=== PATIENT | male | born 1945 | race Caucasian/White ===

== ENCOUNTER → 2018-06-14 11:59 | Outpatient (CLI) | payer OTHER, SELFPAY ==
--- NOTE | 2018-06-14 | DI.US.S_ITS ---
PROCEDURE: US CAROTID DOPPLER BI INDICATIONS: OCCLUSION OF LEFT CAROTID ARTERY TECHNIQUE: Color and pulse Doppler interrogation was performed of both carotid systems, with image documentation and velocity measurements. COMPARISON: [facility], , CAROTID ARTERY DOPPLER BILAT, 01/02/2013, 10:25. [facility], [place], CAROTID ARTERY DOPPLER BILAT, 01/18/2014, 10:42. [facility], [place], CAROTID ARTERY DOPPLER BILAT, 09/02/2016, 7:17. [facility], [place], CAROTID ARTERY DOPPLER BILAT, 09/05/2017, 14:36. FINDINGS: Stenosis calculations are based on SRU (Society of Radiologists in Ultrasound) criteria. Right side: Brachial blood pressure: 138/76 mm Hg. Common carotid artery peak systolic velocity: 84 cm/sec (prior 106 cm/s). Internal carotid artery peak systolic velocity: 152 cm/sec (prior 189 cm/s). Internal carotid artery end diastolic velocity: 63 cm/sec (prior 59 cm/s). External carotid artery peak systolic velocity: 210 cm/sec (prior 214 cm/s). ICA/CCA peak systolic ratio: 1.8 (prior 1.87). Da Silva scale imaging description: Moderate atherosclerotic changes are seen. Percent internal carotid artery stenosis: 50-69% by velocity criteria Vertebral artery: Flow direction is antegrade. Left side: Brachial blood pressure: 126/77 mm Hg. Common carotid artery peak systolic velocity: 77 cm/sec (prior 68 cm/s). Internal carotid artery peak systolic velocity: Occluded, as before. Internal carotid artery end diastolic velocity: Occluded, as before. External carotid artery peak systolic velocity: 133 cm/sec (prior 59 cm/s). ICA/CCA peak systolic ratio: Occluded, N./A. Da Silva scale imaging description: There is an occluded left internal carotid artery. Percent internal carotid artery stenosis: 100% Vertebral artery: Flow direction is antegrade. IMPRESSION: Occluded left internal carotid artery, as before. By velocity criteria, there is a moderate stenosis (between 50 and 69% stenosis) within the right proximal internal carotid artery. The true degree of stenosis is felt most likely to be at the lower end of this range. There is also a greater than 50% stenosis involving the right external carotid artery, by velocity criteria. Dictated by: Landry Camarillo M.D. on 06/14/2018 at 12:07 Approved by: Landry Camarillo M.D. on 06/14/2018 at 12:09
== END ==
PROVIDERS: PCP Family Medicine; Visit Provider Internal Medicine Cardiovascular Disease
DX: I65.23 Occlusion and stenosis of bilateral carotid arteries (principal)
CPT/HCPCS: 93880

== ENCOUNTER 2019-04-17 06:42 | Day surgery (SDC) | payer OTHER, SELFPAY ==
[2019-04-17 07:15] VITALS: BP 157/81; PULSE 51; RESP 20; TEMP 36.2; O2SAT 98; BMI 31.3
[2019-04-17] MEDS: PROPARACAINE 0.5% OPHTH SOL 2 DROPS EYE-OP (07:20)
[2019-04-17] MEDS: CATARACT EYE COMPOUND (10 DROPS/SYRINGE) 3 DROPS EYE-OP (07:25)
--- NOTE | 2019-04-17 07:49 | PM.PREOP ---
Pre-operative Note Interval Note History & Physical reviewed/Exam performed by Physician: No Changes to H&P: No
--- NOTE | 2019-04-17 07:49 | PM.OP.1 ---
Operative Date/Time/Diagnoses Pre-op diagnosis: Nuclear cataract right eye Procedure & Clinicians Procedure: Cataract Surgery Same procedure as scheduled: Yes Surgeon: Mario Chiu Anesthesia Type: MAC +/- and Sedation Operative Notes Procedure in detail: Patient brought to the operating suite. Tetracaine drops placed in the right eye. Patient was prepped and draped in sterile manner. Wire lid speculum was placed in the eye. Betadine drops were placed on the eye. This was irrigated. Lidocaine jelly was placed on the eye. A paracentesis port was created with a side-port blade. 0.1 mL 1% preservative free lidocaine was injected into the anterior chamber. The anterior chamber was deepened with viscoelastic. 2.6 mm keratome was used to create a temporal clear corneal incision. The pupil was floppy and miotic. A 6.25 malyugin ring was used to enlarge the pupil. Cystotome and Utrata forceps were used to create continuous tear capsulorrhexis. Balanced salt solution was used to hydro dissect the nucleus. The phacoemulsification handpiece was inserted and the nucleus was removed using the stop and chop technique. The irrigation aspiration handpiece was inserted and the remaining cortex was removed. Anterior chamber was deepened with viscoelastic. An Brunson ZCB00 intraocular lens with a power of 23.5 was injected into the capsular bag. The malugin ring was removed. Irrigation aspiration handpiece was inserted and the remaining viscoelastic was removed. Incision was hydrated with balanced salt solution and found to be leak free with pressure with Weck-Brissa sponges. 0.1 mL Vigamox injected anterior chamber. 0.3 mL Kenalog 10 mg was injected subconjunctivally. Lid speculum was removed. The patient left the operating room in excellent condition. Complications: none Post-operative Condition: stable Disposition: same day surgery
--- NOTE | 2019-04-17 08:04 | SUR.OPER ---
Supine on eye stretcher, head on extension cradle secured with tape. Arms tucked at sides with blanket. Pillow under knees.
[2019-04-17] MEDS: TRIAMCINOLONE 50 MG/5 ML VIAL INJ (08:06)
[2019-04-17] MEDS: CHONDROIDTIN/SOD HYALURONATE 1.05 ML SYRINGE INTRAOCULA (08:06)
[2019-04-17] MEDS: PHENYLEPHRINE/LIDOCAINE VIAL (OR) 0.2 ML EYE-OP (08:06)
[2019-04-17] MEDS: LIDOCAINE JELLY 2% 5 ML 1 APPLIC TOP (08:07)
[2019-04-17] MEDS: TETRACAINE 0.5% OPHTH DROPS 4 ML 2 DROPS EYE-OP (08:07)
[2019-04-17] MEDS: BALANCED SALT IRRIG SOLN NO.2 500 ML, EPINEPHrine 1 MG IRR (08:07)
[2019-04-17] MEDS: MOXIFLOXACIN INJ 5 MG/ML VIAL EYE-OP (08:08)
[2019-04-17 08:19] VITALS: BP 131/74; PULSE 52; RESP 15; TEMP 36.3; O2SAT 97
== END 2019-04-17 08:27 | disposition home or self-care (01) ==
LOC: OR 06:49
PROVIDERS: PCP Family Medicine; Visit Provider Ophthalmology
PROC: (CPT 66984; principal; 2019-04-17 08:15)
DX: H25.11 Age-related nuclear cataract, right eye (principal); R00.9 Unspecified abnormalities of heart beat
CPT/HCPCS: 66984; J0171; J2250; J3301

== ENCOUNTER 2019-05-01 06:40 | Day surgery (SDC) | payer OTHER, SELFPAY ==
[2019-05-01] MEDS: PROPARACAINE 0.5% OPHTH SOL 2 DROPS EYE-OP (07:24)
[2019-05-01] MEDS: CATARACT EYE COMPOUND (10 DROPS/SYRINGE) 3 DROPS EYE-OP (07:29)
[2019-05-01 07:38] VITALS: BP 137/69; PULSE 50; RESP 16; TEMP 36.7; O2SAT 98; BMI 31.3
--- NOTE | 2019-05-01 08:04 | PM.PREOP ---
Pre-operative Note Interval Note History & Physical reviewed/Exam performed by Physician: No Changes to H&P: No
--- NOTE | 2019-05-01 08:04 | PM.OP.1 ---
Operative Date/Time/Diagnoses Pre-op diagnosis: Nuclear Cataract Left eye Post-op diagnosis: same Procedure & Clinicians Surgeon: Mario Chiu Anesthesia Type: MAC +/- and Sedation Operative Notes Procedure in detail: Patient brought to the operating suite. Tetracaine drops placed in the left eye. Patient was prepped and draped in sterile manner. Wire lid speculum was placed in the eye. Betadine drops were placed on the eye. This was irrigated. Lidocaine jelly was placed on the eye. A paracentesis port was created with a side-port blade. 0.1 mL 1% preservative free lidocaine was injected into the anterior chamber. The anterior chamber was deepened with viscoelastic. 2.6 mm keratome was used to create a temporal clear corneal incision. The pupil was floppy and miotic. A 6.2 malyugin ring was used to enlarge the pupil. Cystotome and Utrata forceps were used to create continuous tear capsulorrhexis. Balanced salt solution was used to hydro dissect the nucleus. The phacoemulsification handpiece was inserted and the nucleus was removed using the stop and chop technique. The irrigation aspiration handpiece was inserted and the remaining cortex was removed. Anterior chamber was deepened with viscoelastic. An Brunson ZCB00 intraocular lens with a power of 24.0 was injected into the capsular bag. The malyugin ring was removed. Irrigation aspiration handpiece was inserted and the remaining viscoelastic was removed. Incision was hydrated with balanced salt solution and found to be leak free with pressure with Weck-Brissa sponges. 0.1 mL Vigamox injected anterior chamber. 0.3 mL Kenalog 10 mg was injected subconjunctivally. Lid speculum was removed. The patient left the operating room in excellent condition. Complications: none Post-operative Condition: stable Disposition: same day surgery
[2019-05-01] MEDS: BALANCED SALT IRRIG SOLN NO.2 500 ML, EPINEPHrine 1 MG IRR (08:22)
[2019-05-01] MEDS: TETRACAINE 0.5% OPHTH DROPS 4 ML 2 DROPS EYE-OP (08:22)
[2019-05-01] MEDS: CHONDROIDTIN/SOD HYALURONATE 1.05 ML SYRINGE INTRAOCULA (08:22)
[2019-05-01] MEDS: PHENYLEPHRINE/LIDOCAINE VIAL (OR) 0.2 ML EYE-OP (08:23)
[2019-05-01] MEDS: MOXIFLOXACIN INJ 5 MG/ML VIAL EYE-OP (08:23)
[2019-05-01] MEDS: LIDOCAINE JELLY 2% 5 ML 1 APPLIC TOP (08:23)
[2019-05-01] MEDS: TRIAMCINOLONE 50 MG/5 ML VIAL INJ (08:23)
[2019-05-01 08:37] VITALS: BP 145/78; PULSE 51; RESP 8; TEMP 36.8; O2SAT 97
[2019-05-01 08:38] VITALS: BP 145/78; PULSE 57; RESP 8; TEMP 36.8; O2SAT 97
[2019-05-01 08:50] VITALS: BP 135/71; PULSE 51; RESP 12; O2SAT 95
== END 2019-05-01 08:56 | disposition home or self-care (01) ==
LOC: OR 06:43
PROVIDERS: PCP Family Medicine; Visit Provider Ophthalmology
PROC: (CPT 66984; principal; 2019-05-01 08:15)
DX: H25.12 Age-related nuclear cataract, left eye (principal); R00.9 Unspecified abnormalities of heart beat
CPT/HCPCS: 66984; J0171; J2250; J3010; J3301

== ENCOUNTER → 2019-05-07 08:32 | Outpatient (CLI) | payer OTHER, SELFPAY ==
--- NOTE | 2019-05-07 08:33 | DI.US.S_ITS ---
PROCEDURE: US CAROTID DOPPLER BI INDICATIONS: LEFT CAROTID OCCLUSION TECHNIQUE: Color and pulse Doppler interrogation was performed of both carotid systems, with image documentation and velocity measurements. COMPARISON: [facility], , CAROTID ARTERY DOPPLER BILAT, 09/05/2017, 14:36. [facility], [place], CAROTID ARTERY DOPPLER BILAT, 09/02/2016, 7:17. [facility], , US CAROTID DOPPLER BI, 06/14/2018, 12:08. FINDINGS: Stenosis calculations are based on SRU (Society of Radiologists in Ultrasound) criteria. Right side: Brachial blood pressure: 130/74 mm Hg. Common carotid artery peak systolic velocity: 78 cm/sec. Internal carotid artery peak systolic velocity: 190 cm/sec. Internal carotid artery end diastolic velocity: 59 cm/sec. External carotid artery peak systolic velocity: 185 cm/sec. ICA/CCA peak systolic ratio: 2.5. Da Silva scale imaging description: Heavy scattered plaque. Percent internal carotid artery stenosis: 50-69% stenosis. Vertebral artery: Flow direction is antegrade. Left side: Brachial blood pressure: 143/83 mm Hg. Common carotid artery peak systolic velocity: 55 cm/sec. Internal carotid artery peak systolic velocity: Occluded Internal carotid artery end diastolic velocity: N./A. External carotid artery peak systolic velocity: 108 cm/sec. ICA/CCA peak systolic ratio: N./A.. Da Silva scale imaging description: Heavy scattered plaque. Percent internal carotid artery stenosis: Chronic occlusion of the internal carotid artery. Vertebral artery: Not visualized. IMPRESSION: 1. Slight progression of 50-69% stenosis of the right internal carotid artery. 2. Chronic occlusion of the left internal carotid artery redemonstrated. Dictated by: Silver Campos [facility] Interpreted: Charles Xie MD on 05/07/2019 at 10:19 Approved by: Charles Xie M.D. on 05/07/2019 at 12:15
== END ==
PROVIDERS: PCP Family Medicine; Visit Provider Family Medicine
DX: I65.23 Occlusion and stenosis of bilateral carotid arteries (principal)
CPT/HCPCS: 93880

== ENCOUNTER → 2019-07-30 07:58 | Outpatient (CLI) | payer OTHER, SELFPAY ==
[2019-07-30 08:37] LABS: Add Manual Diff / Slide Review NO; Basophils Absolute Auto 0 /uL (0-100); Basophils Percent Auto 0.8 % (0-2); Eosinophils Absolute Auto 100 /uL (0-450); Eosinophils Percent Auto 1.6 % (2-4); Hematocrit 43.6 % (41-53); Hemoglobin 14.8 g/dL (13.5-17.5); Lymphocytes Absolute Auto 1500 /uL (1100-4500); Mean Corpuscular HGB Conc 33.9 % (30-36); Mean Corpuscular Hemoglobin 30.5 PG (26-34); Mean Corpuscular Volume 89.8 fL (80-100); Monocytes Absolute Auto 400 /uL (0-900); Monocytes Percent Auto 7.2 % (3-14); Neutrophils Absolute Auto 3600 /uL (1500-7000); Neutrophils Percent Auto 64.4 % (50-75); Platelet Count 144 X10^3/uL (150-400); Red Blood Cell Count 4.85 X10^6/uL (4.5-5.9); Red Cell Distribution Width 13.1 % (11.6-14.8); White Blood Cell Count 5.7 X10^3/uL (4.5-11.0)
[2019-07-30 08:42] LABS: Alanine Aminotransferase 22 IU/L (<50); Albumin 4.4 g/dL (3.5-5.0); Albumin Globulin Ratio 1.4 (1.0-2.8); Alkaline Phosphatase 66 U/L (38-126); Aspartate Aminotransferase 26 IU/L (17-59); Bilirubin Total 0.5 mg/dL (0.2-1.3); Blood Urea Nitrogen 16 mg/dL (9-20); Calcium 9.5 mg/dL (8.4-10.2); Carbon Dioxide 28 mmol/L (22-32); Chloride 102 mmol/L (98-107); Cholesterol 129 mg/dL (140-199); Estimated Glomerular Filt Rate > 60.0 mL/min (>60); Globulin 3.1 g/dL (1.7-4.1); Glucose 122 mg/dL (80-110); HDL Cholesterol 56 mg/dL (40-60); HEMOLYSIS < 15 (0-50); LDL Cholesterol Calculated 48 mg/dL (<100); Potassium 4.8 mmol/L (3.4-5.1); Sodium 139 mmol/L (137-145); Total Protein 7.5 g/dL (6.3-8.2); Triglycerides 123 mg/dL (35-150)
== END ==
PROVIDERS: PCP Family Medicine; Referring Provider Hospitalist; Visit Provider Hospitalist
DX: I25.10 Atherosclerotic heart disease of native coronary artery without angina pectoris (principal); E78.2 Mixed hyperlipidemia
CPT/HCPCS: 36415; 80053; 80061; 85025; G0103

== ENCOUNTER → 2020-05-07 07:06 | Outpatient (CLI) | payer OTHER, SELFPAY ==
[2020-05-07 08:38] LABS: BUN Creatinine Ratio 18.8 (6-22); Blood Urea Nitrogen 18 mg/dL (9-20); Calcium 9.5 mg/dL (8.4-10.2); Carbon Dioxide 34 mmol/L (22-32); Chloride 101 mmol/L (98-107); Cholesterol 122 mg/dL (140-199); Estimated Glomerular Filt Rate > 60.0 mL/min (>60); Glucose 116 mg/dL (80-110); HDL Cholesterol 59 mg/dL (40-60); HEMOLYSIS < 15 (0-50); LDL Cholesterol Calculated 40 mg/dL (<100); Potassium 4.8 mmol/L (3.4-5.1); Sodium 136 mmol/L (137-145); Triglycerides 115 mg/dL (35-150)
== END ==
PROVIDERS: PCP Family Medicine; Referring Provider Family Medicine; Visit Provider Family Medicine
DX: I25.10 Atherosclerotic heart disease of native coronary artery without angina pectoris (principal); I73.9 Peripheral vascular disease, unspecified
CPT/HCPCS: 36415; 80048; 80061

== ENCOUNTER → 2020-05-26 11:31 | Outpatient (CLI) | payer OTHER, SELFPAY ==
--- NOTE | 2020-05-26 11:32 | DI.US.S_ITS ---
PROCEDURE: US CAROTID DOPPLER BI INDICATIONS: Carotid artery disease TECHNIQUE: Color and pulse Doppler interrogation was performed of both carotid systems, with image documentation and velocity measurements. COMPARISON: [facility], [place], [place] CAROTID DOPPLER BI, 05/07/2019, 9:08. FINDINGS: Stenosis calculations are based on SRU (Society of Radiologists in Ultrasound) criteria. Right side: Brachial blood pressure: 163/78 mm Hg. Common carotid artery peak systolic velocity: 94 cm/sec. Internal carotid artery peak systolic velocity: 182 cm/sec. Internal carotid artery end diastolic velocity: 79 cm/sec. External carotid artery peak systolic velocity: 188 cm/sec. ICA/CCA peak systolic ratio: 1.94 . Da Silva scale imaging description: Calcified plaque at the bifurcation. Percent internal carotid artery stenosis: 50-69% . Vertebral artery: Flow direction is antegrade. Left side: Brachial blood pressure: 168/78 mm Hg. Common carotid artery peak systolic velocity: 77 cm/sec. Internal carotid artery peak systolic velocity: Occluded. Internal carotid artery end diastolic velocity: Occluded External carotid artery peak systolic velocity: 148 cm/sec. ICA/CCA peak systolic ratio: Not applicable . Da Silva scale imaging description: Occlusion of the left ICA as before. Percent internal carotid artery stenosis: Not applicable . Vertebral artery: Flow direction is antegrade. IMPRESSION: 50-69% stenosis of the right internal carotid artery. Redemonstrated occlusion of the left ICA. Dictated by: Charles Xie M.D. on 05/26/2020 at 14:28 Approved by: Charles Xie M.D. on 05/26/2020 at 14:31
== END ==
PROVIDERS: PCP Family Medicine; Referring Provider Family Medicine; Visit Provider Family Medicine
DX: I65.23 Occlusion and stenosis of bilateral carotid arteries (principal); I73.9 Peripheral vascular disease, unspecified
CPT/HCPCS: 93880

== ENCOUNTER → 2020-09-22 07:36 | Outpatient (CLI) | payer OTHER, SELFPAY ==
--- NOTE | 2020-09-22 07:38 | DI.US.S_ITS ---
PROCEDURE: US ABD AORTA ANEURYSM SCREEN INDICATIONS: AAA SCREEN TECHNIQUE: Real time scanning was performed of the aorta and iliac arteries, with image documentation. COMPARISON: None. FINDINGS: Aorta: Proximal aortic diameter measures 1.5 cm. Mid-aorta measures 1.6 cm. Distal aortic diameter is 1.3 cm. Iliac arteries: Right common iliac artery measures 0.9 cm. Left common iliac artery measures 0.9 cm. IMPRESSION: Negative for aneurysm. Dictated by: Landry Camarillo M.D. on 09/24/2020 at 14:16 Approved by: Landry Camarillo M.D. on 09/24/2020 at 14:17
== END ==
PROVIDERS: PCP Student in an Organized Health Care Education/Training Program; Referring Provider Student in an Organized Health Care Education/Training Program; Visit Provider Student in an Organized Health Care Education/Training Program
DX: Z13.6 Encounter for screening for cardiovascular disorders (principal); Z87.891 Personal history of nicotine dependence
CPT/HCPCS: 76706

== ENCOUNTER → 2021-02-20 07:49 | Outpatient (CLI) | payer OTHER, SELFPAY ==
[2021-02-20 08:35] LABS: Alanine Aminotransferase 25 IU/L (<50); Albumin 4.6 g/dL (3.5-5.0); Albumin Globulin Ratio 1.6 (1.0-2.8); Alkaline Phosphatase 66 U/L (38-126); Aspartate Aminotransferase 30 IU/L (17-59); BUN Creatinine Ratio 12.4 (6-22); Bilirubin Total 0.5 mg/dL (0.2-1.3); Blood Urea Nitrogen 13 mg/dL (9-20); Calcium 9.3 mg/dL (8.4-10.2); Carbon Dioxide 30 mmol/L (22-32); Chloride 104 mmol/L (98-107); Estimated Glomerular Filt Rate > 60.0 mL/min (>60); Globulin 2.8 g/dL (1.7-4.1); Glucose 130 mg/dL (80-110); HEMOLYSIS < 15 (0-50); Sodium 139 mmol/L (137-145); Total Protein 7.4 g/dL (6.3-8.2)
[2021-02-22 18:29] LABS: Cholesterol, Total 121 mg/dL (100-199); HDL-Cholesterol 54 mg/dL (>39); HDL-Particle (Total) 37.4 umol/L (>=30.5); LDL Particle 526 nmol/L (<1000); LDL Size 21.4 nm (>20.5); LDL-Cholsterol 49 mg/dL (0-99); LP-IR Score 39 (<=45); Small LDL- Particle 181 nmol/L (<=527); Triglycerides 93 mg/dL (0-149)
== END ==
PROVIDERS: PCP Student in an Organized Health Care Education/Training Program; Referring Provider Specialist; Visit Provider Specialist
DX: E78.2 Mixed hyperlipidemia (principal)
CPT/HCPCS: 36415; 80053; 80061; 83704

== ENCOUNTER → 2021-03-03 15:38 | Outpatient (CLI) | payer OTHER, SELFPAY ==
--- NOTE | 2021-03-03 | DI.ECHO.S_ITS ---
[place] [facility]---------+ [facility] +---------+ : : [address] : : : : [id number] : : : : Phone: [phone]+ Echocardiogram Report + + :Name: ROBERTO DOUGLAS Study Date: 03/03/2021 Height: 66.5 in: :[facility] ReadingLocation: Weight: 200 lb : : Gender: Male BSA: 2.0 m2 : :: 1945 Age: 75 yrs BP: 162/88 mmHg: :Reason For Study: OLD MYOCARDIAL INFARCTION : :Ordering Physician: MICHAEL, : :MANDEEP Performed By: Lee Ann Fabian : :Referring: MANDEEP RODRIGUEZ : + + Interpretation Summary Left ventricular systolic function appears normal with an estimated ejection fraction of 65 to 70% without focal wall motion abnormality. Left ventricular size and wall thickness appear normal. Diastolic function is challenging to assess because of contradictory data. The right ventricle appears normal in size and systolic function. Right ventricular systolic pressure cannot be estimated but CVP is likely around 3 mmHg. There is moderate left atrial enlargement. There is mild pulmonic valve regurgitation but no other significant valvular abnormality. Procedure: A two-dimensional transthoracic echocardiogram with color flow and Doppler was performed. The study quality was technically adequate. There is no prior echocardiogram noted for this patient. The patient was in sinus bradycardia with heart rates between 50-55 bpm during the exam. Left Ventricle: The left ventricle appears normal in size, wall thickness, and systolic function without any focal wall motion abnormalities. The ejection fraction is estimated to be 65-70%. Diastolic function could not be accurately assessed due to contradictory data. Right Ventricle: The right ventricle is normal in size and function. Atria: The left atrium is moderately dilated. Right atrial size is normal. There is no Doppler evidence for an interatrial shunt. Mitral Valve: There is mild mitral annular calcification. The mitral valve is normal in structure and function. There is trace mitral regurgitation. Aortic Valve: The aortic valve is trileaflet. The aortic valve is mildly calcified. The aortic valve opens well. There is no aortic valve stenosis. No aortic regurgitation is present. Tricuspid Valve: The tricuspid valve is normal in structure and function. There is trace tricuspid regurgitation. Pulmonary artery pressures cannot be estimated because of the lack of a measurable TR jet velocity but the IVC suggests a CVP of around 3 mmHg. Pulmonic Valve: The pulmonic valve leaflets are thin and pliable; valve motion is normal. There is mild pulmonic regurgitation. There is no other significant valvular heart disease. Great Vessels: The aortic root is normal size. The dimensions of the ascending aorta are normal. The IVC is of normal diameter and collapses greater than 50% with a sniff. This suggests a low right atrial pressure of 3 mm Hg. Pericardium/ Pleura There is no pericardial effusion. There is no pleural effusion. MMode/2D Measurements & Calculations LVIDd: 5.1 cm LVOT diam: 2.0 cm LVIDs: 3.3 cm Ao root diam: 3.1 cm FS: 34.2 % asc Aorta Diam: 3.2 cm IVSd: 0.92 cm LVPWd: 0.99 cm LV norton. diameter/BSA (cm/m^2): 2.5 LV sys. diameter/BSA (cm/m^2): 1.7 LA A2 area: 25.7 cm2 RA long axis: 4.9 cm LA A4 area: 22.0 cm2 RA area: 14.9 cm2 LA length (vol): 5.5 cm RA vol: 38.8 ml LA vol: 87.0 ml RA : 19.3 ml/m2 LA vol index: 43.3 ml/m2 IVC diam: 1.4 cm RVD1 (basal): 4.0 cm TAPSE: 1.7 cm Doppler Measurements & Calculations Ao V2 max: 150.3 cm/sec LVOT Max Mark: 92.4 cm/sec Ao V2 mean: 103.0 cm/sec LV V1 max P.4 mmHg Ao max P.0 mmHg LV V1 VTI: 23.0 cm Ao mean P.7 mmHg JUAN RAMON(I,D): 2.1 cm2 Ao V2 VTI: 34.5 cm JUAN RAMON(V,D): 2.0 cm2 sev ratio: 0.67 JUAN RAMON indexed to BSA (cm^2/m^2): 1.1 MV E max mark: 78.9 cm/sec PA V2 max: 136.6 cm/sec MV A max mark: 53.5 cm/sec PA V2 mean: 93.4 cm/sec MV E/A: 1.5 PA mean P.9 mmHg Med Peak E' Mark: 6.1 cm/sec PA pr(Accel): 32.8 mmHg E/E' med: 12.9 Lat Peak E' Mark: 7.3 cm/sec E/E' lat: 10.9 E/e' average: 11.9 MV dec time: 0.25 sec SV(LVOT): 73.7 ml Reading Physician:08:30 AM
== END ==
PROVIDERS: PCP Student in an Organized Health Care Education/Training Program; Referring Provider Specialist; Visit Provider Specialist
DX: I25.2 Old myocardial infarction (principal); I37.1 Nonrheumatic pulmonary valve insufficiency; I51.7 Cardiomegaly
CPT/HCPCS: 93306

== ENCOUNTER → 2022-02-01 06:56 | Outpatient (CLI) | payer OTHER, SELFPAY ==
[2022-02-01 09:24] LABS: Alanine Aminotransferase 20 IU/L (<50); Albumin 4.4 g/dL (3.5-5.0); Albumin Globulin Ratio 1.5 (1.0-2.8); Alkaline Phosphatase 66 U/L (38-126); Aspartate Aminotransferase 26 IU/L (17-59); Bilirubin Total 0.5 mg/dL (0.2-1.3); Blood Urea Nitrogen 17 mg/dL (9-20); Calcium 9.2 mg/dL (8.4-10.2); Carbon Dioxide 29 mmol/L (22-32); Chloride 102 mmol/L (98-107); Estimated Glomerular Filt Rate > 60 mL/min (>60); Glucose 122 mg/dL (80-110); HEMOLYSIS < 15 (0-50); Potassium 4.5 mmol/L (3.4-5.1); Sodium 138 mmol/L (137-145); Total Protein 7.4 g/dL (6.3-8.2)
[2022-02-03 07:36] LABS: Cholesterol, Total 109 mg/dL (100-199); HDL-Cholesterol 43 mg/dL (>39); HDL-Particle (Total) 32.5 umol/L (>=30.5); LDL Particle 520 nmol/L (<1000); LDL Size 20.6 nm (>20.5); LDL-Cholsterol 45 mg/dL (0-99); LP-IR Score 55 (<=45); Small LDL- Particle 158 nmol/L (<=527); Triglycerides 113 mg/dL (0-149)
== END ==
PROVIDERS: PCP Student in an Organized Health Care Education/Training Program; Referring Provider Specialist; Visit Provider Specialist
DX: E78.00 Pure hypercholesterolemia, unspecified (principal)
CPT/HCPCS: 36415; 80053; 80061; 83704

== ENCOUNTER → 2022-08-30 06:37 | Outpatient (CLI) | payer OTHER, SELFPAY ==
[2022-08-30 07:40] LABS: Cholesterol 131 mg/dL (140-199); HDL Cholesterol 62 mg/dL (40-60); LDL Cholesterol Calculated 51 mg/dL (<100); Triglycerides 91 mg/dL (35-150)
== END ==
PROVIDERS: PCP Student in an Organized Health Care Education/Training Program; Visit Provider Specialist
DX: E78.00 Pure hypercholesterolemia, unspecified (principal)
CPT/HCPCS: 36415; 80061

== ENCOUNTER → 2022-09-13 11:06 | Outpatient (CLI) | payer OTHER, SELFPAY ==
[2022-09-13 12:30] LABS: Alanine Aminotransferase 28 IU/L (<50); Albumin 4.2 g/dL (3.5-5.0); Albumin Globulin Ratio 1.5 (1.0-2.8); Alkaline Phosphatase 67 U/L (38-126); Aspartate Aminotransferase 26 IU/L (17-59); BUN Creatinine Ratio 11.5 (6-22); Bilirubin Total 0.5 mg/dL (0.2-1.3); Blood Urea Nitrogen 12 mg/dL (9-20); Carbon Dioxide 28 mmol/L (22-32); Chloride 102 mmol/L (98-107); Estimated Glomerular Filt Rate > 60 mL/min (>60); Globulin 2.8 g/dL (1.7-4.1); Glucose 94 mg/dL (80-110); HEMOLYSIS < 15 (0-50); Potassium 4.7 mmol/L (3.4-5.1); Sodium 137 mmol/L (137-145)
== END ==
PROVIDERS: PCP Student in an Organized Health Care Education/Training Program; Referring Provider Specialist; Visit Provider Specialist
DX: E78.00 Pure hypercholesterolemia, unspecified (principal)
CPT/HCPCS: 36415; 80053

== ENCOUNTER → 2023-06-22 06:31 | Outpatient (CLI) | payer OTHER, SELFPAY ==
[2023-06-22 09:03] LABS: Alanine Aminotransferase 20 IU/L (<50); Albumin 4.1 g/dL (3.5-5.0); Albumin Globulin Ratio 1.5 (1.0-2.8); Alkaline Phosphatase 66 U/L (38-126); BUN Creatinine Ratio 14.5 (6-22); Bilirubin Total 0.5 mg/dL (0.2-1.3); Blood Urea Nitrogen 18 mg/dL (9-20); Calcium 9.4 mg/dL (8.4-10.2); Carbon Dioxide 29 mmol/L (22-32); Chloride 100 mmol/L (98-107); Estimated Glomerular Filt Rate 59 mL/min (>60); Globulin 2.7 g/dL (1.7-4.1); Glucose 130 mg/dL (80-110); HEMOLYSIS < 15 (0-50); Potassium 4.9 mmol/L (3.4-5.1); Sodium 136 mmol/L (137-145); Total Protein 6.8 g/dL (6.3-8.2)
[2023-06-24 07:20] LABS: Cholesterol, Total 146 mg/dL (100-199); HDL-Cholesterol 60 mg/dL (>39); HDL-Particle (Total) 41.1 umol/L (>=30.5); Historical Reading Comment: (.); LDL Particle 767 nmol/L (<1000); LDL Size 20.7 nm (>20.5); LDL-Cholsterol 63 mg/dL (0-99); LP-IR Score 51 (<=45); Small LDL- Particle 507 nmol/L (<=527); Triglycerides 130 mg/dL (0-149)
[2023-06-24 16:12] LABS: Aspartate Aminotransferase 27 IU/L (17-59)
== END ==
LOC: LAB 06:36
PROVIDERS: PCP Student in an Organized Health Care Education/Training Program; Referring Provider Specialist; Visit Provider Specialist
DX: E78.00 Pure hypercholesterolemia, unspecified (principal)
CPT/HCPCS: 36415; 80053; 80061; 83704

== ENCOUNTER → 2023-08-26 11:59 | Outpatient (CLI) | payer OTHER, SELFPAY ==
[2023-08-26 15:32] LABS: Alanine Aminotransferase 20 IU/L (<50); Albumin 4.2 g/dL (3.5-5.0); Albumin Globulin Ratio 1.4 (1.0-2.8); Alkaline Phosphatase 65 U/L (38-126); Aspartate Aminotransferase 26 IU/L (17-59); BUN Creatinine Ratio 13.2 (6-22); Bilirubin Total 0.7 mg/dL (0.2-1.3); Blood Urea Nitrogen 14 mg/dL (9-20); Calcium 8.9 mg/dL (8.4-10.2); Carbon Dioxide 29 mmol/L (22-32); Chloride 105 mmol/L (98-107); Cholesterol 109 mg/dL (140-199); Estimated Glomerular Filt Rate > 60 mL/min (>60); Globulin 3.1 g/dL (1.7-4.1); Glucose 136 mg/dL (80-110); HDL Cholesterol 48 mg/dL (40-60); HEMOLYSIS < 15 (0-50); LDL Cholesterol Calculated 27 mg/dL (<100); Potassium 3.9 mmol/L (3.4-5.1); Sodium 138 mmol/L (137-145); Total Protein 7.3 g/dL (6.3-8.2); Triglycerides 170 mg/dL (35-150)
[2023-08-26 16:01] LABS: Prostate Specific Antigen Scrn 4.23 ng/mL (0.1-4.0)
== END ==
PROVIDERS: PCP Family Medicine; Referring Provider Family Medicine; Visit Provider Family Medicine
DX: I25.10 Atherosclerotic heart disease of native coronary artery without angina pectoris (principal); Z12.5 Encounter for screening for malignant neoplasm of prostate; Z12.11 Encounter for screening for malignant neoplasm of colon
CPT/HCPCS: 36415; 80053; 80061; G0103

== ENCOUNTER 2024-02-28 04:29 | Emergency (ER) | payer OTHER, SELFPAY ==
[2024-02-28 04:39] VITALS: BP 210/88; PULSE 53; RESP 18; TEMP 36.3; O2SAT 99; BMI 31.3
--- NOTE | 2024-02-28 04:42 | DI.CT.S_ITS ---
PROCEDURE: CT LUMBAR SPINE WO CON INDICATIONS: atraumatic midline lumbar pain TECHNIQUE: Noncontrast 3 mm thick sections acquired from the T12 level to the sacrum. Sagittal and coronal reformats were constructed. For radiation dose reduction, the following was used: automated exposure control. COMPARISON: [facility], SPINE LUMB 2 OR 3VW, 12/17/2014, 12:04. [facility], MR, L-SPINE WITHOUT CONTRAST, 11/19/2014, 7:29. [facility], CR, L-SPINE 2-3 VIEWS, 09/03/2014, 16:40. FINDINGS: Image quality: Excellent. Bones: There is normal bony alignment. No acute vertebral body compression fractures. No suspicious lytic or blastic bony lesions. No pars defects. Multilevel degenerative disc space narrowing most severe at L4-5 and L5-S1. Small anterior osteophytes most prominent at L4-5. Multilevel disc bulges are present. Multilevel spinal stenosis is present remaining most severe at L3-4 and progressive compared to prior exam. Multilevel foraminal narrowing is present most severe at L4-5 and L5-S1 slightly progressive. Soft tissues: No retroperitoneal masses or hematomas. Visualized aorta is normal in caliber. IMPRESSION: Multilevel degenerative changes progressive. No visualized fracture. The above findings are concordant with preliminary report. Dictated by: Massiel Mireles M.D. on 02/28/2024 at 8:55 Approved by: Massiel Mireles M.D. on 02/28/2024 at 9:01
--- NOTE | 2024-02-28 04:45 | ED_ITS ---
HPI - Back Pain/Injury General Chief Complaint: Back Pain/Injury Stated Complaint: back pain Time Seen by Provider: 02/28/24 04:32 Source: patient and family History of Present Illness HPI Narrative: 78-year-old male with history of carotid artery occlusion, coronary artery disease, hypertension presents by private vehicle from home for 1 day lower back pain. Pain began yesterday without provocation and worsened throughout the night. Took aspirin last night but did not take any other medications for pain prior to arrival. Denies bowel or bladder incontinence, denies saddle anesthesia, denies numbness or weakness of his lower extremities. Denies trauma, injury, other complaint Related Data Home Medications Medication Instructions Recorded Confirmed atenolol 25 mg tablet 25 mg PO QDAY ##0 04/13/11 08/26/23 lisinopril 10 mg tablet 10 mg PO DAILY 09/23/22 08/26/23 aspirin 81 mg tablet,delayed 81 mg PO DAILY 08/26/23 08/26/23 release (Adult Low Dose Aspirin) omeprazole 20 mg capsule,delayed 20 mg PO DAILY 08/26/23 08/26/23 release rosuvastatin 40 mg tablet 40 mg PO DAILY 08/26/23 08/26/23 Previous Rx's Medication Instructions Recorded hydrocodone 5 mg-acetaminophen 325 1 tab PO Q8H PRN pain #14 tabs 02/28/24 mg tablet methocarbamol 500 mg tablet 500 mg PO TID PRN muscle spasm #30 02/28/24 tabs methylprednisolone 4 mg tablets in See Rx Instructions PO .COMPLEX 02/28/24 a dose pack (Medrol (Frandy)) #21 ea Allergies Allergy/AdvReac Type Severity Reaction Status Date / Time No Known Drug Allergies Allergy Verified 08/26/23 11:16 Patient History Medical History Elevated PSA Prediabetes Hyperlipidemia Hypertension Measles Chicken pox Tinnitus Hearing loss Myocardial infarction Carotid artery disease Surgical History Anesthesia 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 Social History household members: spouse Smoking Status: Former smoker Smoking Status: Former smoker Substance Use Type: does not use Exam Initial Vital Signs Initial Vital Signs: Vital Signs Temperature 97.3 F L 02/28/24 04:39 Pulse Rate 53 L 02/28/24 04:39 Respiratory Rate 18 02/28/24 04:39 Blood Pressure 210/88 H 02/28/24 04:39 Pulse Oximetry 99 02/28/24 04:39 Oxygen Delivery Method Room Air 02/28/24 04:39 Const: Awake, alert, no acute distress, nontoxic appearing MSK: Atraumatic, generalized tenderness over lumbar spine particularly over L3 vertebra region Skin: Warm, Dry, intact, no rashes Neuro: AO x3, CN II-XII grossly intact, moves all extremities Course Orders Ordered: Discontinued Medications Dexamethasone (Dexamethasone 10 Mg/Ml Vial) 10 mg IV NOW ONE Stop: 02/28/24 06:20 Last Admin: 02/28/24 06:28 Dose: 10 mg Documented By: Diazepam (Diazepam 10 Mg/2 Ml Syringe) 2 mg IV NOW ONE Stop: 02/28/24 04:43 Last Admin: 02/28/24 04:57 Dose: 2 mg Documented By: Acetaminophen (Ofirmev) 1,000 mg in 100 mls @ 400 mls/hr IV NOW ONE Stop: 02/28/24 04:56 Last Infusion: 02/28/24 06:01 Dose: Infused Documented By: Admin: 02/28/24 04:57 Dose: 400 mls/hr Documented By: Lidocaine (Lidocaine 5% Patch) 1 each TOP NOW ONE Stop: 02/28/24 04:43 Last Admin: 02/28/24 04:57 Dose: 1 each Documented By: Vital Signs Vital signs: Vital Signs - 8 hr 02/28/24 04:39 02/28/24 06:00 Temperature 97.3 F L Pulse Rate 53 L 85 Respiratory Rate 18 18 Blood Pressure 210/88 H 148/87 H Pulse Oximetry 99 99 Oxygen Delivery Method Room Air Room Air MDM - Back Pain/Injury Differential Diagnosis Differential diagnosis: Likely lumbar radiculopathy, sciatica and strain of lumbar region MDM Narrative Medical decision making narrative: Nontoxic appearing patient with atraumatic lumbar back pain. No signs or symptoms of cauda equina. Based on age and point tenderness around L3 vertebra we will order IV medications for pain control and CT lumbar spine for assessment. Patient is able to ambulate without assistance to and from the CT scanner. CT scan shows no acute fractures, severe degenerative changes present. There was mention of possible nerve root compression, however patient has no signs or symptoms of cauda equina. Pain controlled with medications at this time. Patient and significant other at bedside counseled of all imaging findings. Patient to be discharged with the pain medications, steroids, recommended close PCP follow up. states that she can swing by the patient's primary care doctor's office today to make a follow up appointment. Patient was advised of red flag symptoms of low back pain that would necessitate a repeat visit to the emergency department. Precautions around pain medications explained to patient and at bedside. Discharge Plan Departure Patient Disposition: Home Clinical Impression: Lower back pain Instructions: DI for Low Back Pain Activity Restrictions/Additional Instructions: The CT imaging obtained today shows fairly significant degenerative changes of your lower back. I recommend against heavy labor for the next several days. Several medications are sent to [facility]. The 1st is a steroid pack, which can help against inflammation. The 2nd is a muscle relaxer, which can help relieve muscle tension. The 3rd is a narcotic pain medication that also contains Tylenol. Take no more than 4000mg of Tylenol daily. Be careful when taking both the muscle relaxers and the pain medications as they can cause drowsiness and puts you at increased risk of falling. Do not take these medications with alcohol or before driving or operating heavy machinery. The pain medication can cause constipation, so take a stool softener with this medication. If you notice an inability to urinate, numbness or weakness in your legs, or any other concerning symptoms return to the emergency department for repeat evaluation. Otherwise follow up with your primary care doctor for further ma nagement. Prescriptions: New methylprednisolone [Medrol (Frandy)] 4 mg tablets,dose pack See Rx Instructions .ROUTE .COMPLEX Qty: 21 0RF Rx Instructions: orally per package directions methocarbamol 500 mg tablet 500 mg PO TID PRN (Reason: muscle spasm) Qty: 30 0RF hydrocodone-acetaminophen 5-325 mg tablet 1 tab PO Q8H PRN (Reason: pain) Qty: 14 0RF No Action atenolol 25 MG tablet 25 mg PO QDAY Qty: 0 lisinopril 10 mg tablet 10 mg PO DAILY aspirin [Adult Low Dose Aspirin] 81 mg tablet,delayed release (DR/EC) 81 mg PO DAILY rosuvastatin 40 mg tablet 40 mg PO DAILY omeprazole 20 mg capsule,delayed release(DR/EC) 20 mg PO DAILY Referrals: Wade Linares DO [Primary Care Provider] - Stand Alone Forms: Patient Portal/API
[2024-02-28] MEDS: diazePAM 10 MG/2 ML SYRINGE 2 MG IV (04:57)
[2024-02-28] MEDS: LIDOCAINE 5% PATCH 1 EACH TOP (04:57)
[2024-02-28] MEDS: ACETAMINOPHEN IV 1,000 MG/100 ML VIAL 400 MG IV (04:57)
[2024-02-28 06:00] VITALS: BP 148/87; PULSE 85; RESP 18; O2SAT 99
[2024-02-28] MEDS: DEXAMETHASONE 10 MG/ML VIAL IV (06:28)
[2024-02-28 07:00] VITALS: BP 135/78; PULSE 85; RESP 19; TEMP 36.8; O2SAT 99
== END 2024-02-28 07:01 | disposition home or self-care (01) ==
PROVIDERS: Emergency Provider Emergency Medicine; PCP Family Medicine
DX: M54.50 Low back pain, unspecified (principal)
CPT/HCPCS: 72131; 96365; 96375; 99283; 99284; J0136; J1100; J3360

== ENCOUNTER → 2024-06-04 06:40 | Outpatient (CLI) | payer OTHER, SELFPAY ==
[2024-06-04 08:12] LABS: Hemoglobin A1C% w Est Avg Glu 6.1 % (4.0-6.0)
[2024-06-04 08:27] LABS: Alanine Aminotransferase 21 IU/L (<50); Albumin 4.4 g/dL (3.5-5.0); Albumin Globulin Ratio 1.8 (1.0-2.8); Alkaline Phosphatase 74 U/L (38-126); Aspartate Aminotransferase 29 IU/L (17-59); BUN Creatinine Ratio 16.4 (6-22); Bilirubin Total 0.5 mg/dL (0.2-1.3); Blood Urea Nitrogen 20 mg/dL (9-20); Calcium 9.6 mg/dL (8.4-10.2); Carbon Dioxide 29 mmol/L (22-32); Chloride 102 mmol/L (98-107); Estimated Glomerular Filt Rate 60 mL/min (>60); Globulin 2.5 g/dL (1.7-4.1); Glucose 121 mg/dL (80-110); HEMOLYSIS < 15 (0-50); Potassium 4.7 mmol/L (3.4-5.1); Sodium 138 mmol/L (137-145); Total Protein 6.9 g/dL (6.3-8.2)
[2024-06-05 07:12] LABS: PSA Free % 31.7 % (.); PSA, Total 4.1 ng/mL (0.0-4.0)
== END ==
LOC: LAB 06:41
PROVIDERS: PCP Family Medicine; Referring Provider Specialist; Visit Provider Specialist
DX: R73.03 Prediabetes (principal); I25.10 Atherosclerotic heart disease of native coronary artery without angina pectoris; E78.00 Pure hypercholesterolemia, unspecified; R97.20 Elevated prostate specific antigen [PSA]; I10 Essential (primary) hypertension
CPT/HCPCS: 36415; 80053; 83036; 84153; 84154

== ENCOUNTER → 2024-06-28 06:10 | Outpatient (CLI) | payer OTHER, SELFPAY ==
[2024-06-28 08:00] LABS: Alanine Aminotransferase 19 IU/L (<50); Albumin 4.1 g/dL (3.5-5.0); Albumin Globulin Ratio 1.7 (1.0-2.8); Alkaline Phosphatase 60 U/L (38-126); Aspartate Aminotransferase 26 IU/L (17-59); BUN Creatinine Ratio 15.7 (6-22); Bilirubin Total 0.5 mg/dL (0.2-1.3); Blood Urea Nitrogen 17 mg/dL (9-20); Calcium 9.2 mg/dL (8.4-10.2); Carbon Dioxide 29 mmol/L (22-32); Chloride 104 mmol/L (98-107); Estimated Glomerular Filt Rate > 60 mL/min (>60); Globulin 2.4 g/dL (1.7-4.1); Glucose 112 mg/dL (80-110); HEMOLYSIS < 15 (0-50); Potassium 4.6 mmol/L (3.4-5.1); Sodium 138 mmol/L (137-145); Total Protein 6.5 g/dL (6.3-8.2)
== END ==
LOC: LAB 06:11
PROVIDERS: PCP Family Medicine; Referring Provider Specialist; Visit Provider Specialist
DX: E78.00 Pure hypercholesterolemia, unspecified (principal)
CPT/HCPCS: 36415; 80053; 80061; 83704

== ENCOUNTER → 2025-04-18 06:05 | Outpatient (CLI) | payer OTHER, SELFPAY ==
[2025-04-18 08:44] LABS: Alanine Aminotransferase 16 IU/L (<50); Albumin 4.4 g/dL (3.5-5.0); Albumin Globulin Ratio 1.8 (1.0-2.8); Alkaline Phosphatase 67 U/L (38-126); Blood Urea Nitrogen 16 mg/dL (9-20); Calcium 9.3 mg/dL (8.4-10.2); Carbon Dioxide 27 mmol/L (22-32); Chloride 104 mmol/L (98-107); Cholesterol 121 mg/dL (140-199); Estimated Glomerular Filt Rate > 60 mL/min (>60); Globulin 2.5 g/dL (1.7-4.1); Glucose 121 mg/dL (70-99); HDL Cholesterol 61 mg/dL (40-60); HEMOLYSIS < 15 (0-50); Potassium 4.6 mmol/L (3.4-5.1); Sodium 139 mmol/L (137-145); Total Protein 6.9 g/dL (6.3-8.2); Triglycerides 113 mg/dL (35-150)
[2025-04-18 10:28] LABS: Hemoglobin A1C% w Est Avg Glu 6.3 % (4.0-6.0)
[2025-04-20 07:10] LABS: PSA, Total 4.9 ng/mL (0.0-4.0)
== END ==
PROVIDERS: PCP Family Medicine; Referring Provider Family Medicine; Visit Provider Family Medicine
DX: R73.03 Prediabetes (principal); E78.00 Pure hypercholesterolemia, unspecified; R97.20 Elevated prostate specific antigen [PSA]
CPT/HCPCS: 36415; 80053; 80061; 83036; 84153; 84154